=== PATIENT | male | born 1965 | race Caucasian/White ===

== ENCOUNTER 2016-12-30 09:57 | Outpatient (CLI) | payer OTHER ==
--- NOTE | 2016-12-30 11:57 | DIAGNOSTIC IMAGING REPORT ---
PROCEDURE: CT ABD/PELVIS WITH CONTRAST INDICATION: PROSTATE CA TECHNIQUE: 125 ml of Isovue 300 were injected intravenously and axial images were obtained of the entire abdomen and pelvis with sagittal and coronal reformations. COMPARISON: Comparison made to CT pelvis on 03/23/2012. FINDINGS: ABDOMEN: Gallbladder, liver, spleen, pancreas, kidneys, and aorta are normal. Bowel pattern is normal. Appendix is not clearly identified, but no evidence of inflammatory process. There are mild to moderate degenerative change of the lumbar spine. PELVIS: Mild to moderate enlargement prostate (5.2 cm). There are lipomatous changes of the right spermatic cord (incidental finding). Pelvic structures are otherwise normal. No evidence of free fluid, or adenopathy. IMPRESSION: 1. Negative CT abdomen. 2. Mild to moderate enlargement prostate (5.2 cm). 3. Otherwise negative CT pelvis. All CT scans at this facility use dose modulation, iterative reconstruction, and/or weight-based dosing when appropriate to reduce radiation dose to as low as reasonably achievable.
== END 2016-12-30 23:00 | disposition home or self-care (01) ==
LOC: CT SRH 09:57
DX: C61 Malignant neoplasm of prostate (principal); N40.0 Benign prostatic hyperplasia without lower urinary tract symptoms